=== PATIENT | female | born 1960 | race Caucasian/White ===

== ENCOUNTER 2021-10-25 07:21 | Day surgery (SDC) | payer OTHER, SELFPAY ==
[~2021-10-25] VITALS: Ht 175.3 cm; Wt 72.6 kg
[2021-10-25] MEDS ORDERED: PROPOFOL 200MG/ 20ML VIAL (DIPRIVAN) IV ONE (09:21)
[2021-10-25] MEDS ORDERED: ONDANSETRON HCL 4 MG/2 ML VIAL IVP ONE (09:21)
[2021-10-25] MEDS ORDERED: DEXAMETHASONE SOD PHOSPHATE 4 MG/ML VIAL IVP ONE (09:21)
[2021-10-25] MEDS ORDERED: DESFLURANE 15 MIN GAS INH ONE (09:21)
[2021-10-25] MEDS ORDERED: KETOROLAC TROMETHAMINE 30 MG VIAL IVP ONE (09:21)
[2021-10-25] MEDS ORDERED: LR 1,000 ML IV.SOLN IV ONE (09:21)
[2021-10-25] MEDS ORDERED: NS IRRIG SOLN 1000 ML IR ONE (09:21)
[2021-10-25] MEDS ORDERED: fentaNYL CITRATE/PF 100 MCG/2 ML AMP IVP ONE (09:21)
[2021-10-25] MEDS ORDERED: NS 1000 ML IV.SOLN IV ONE (09:21)
[2021-10-25] MEDS ORDERED: ACETAMINOPHEN I.V. 1000 MG 100 ML IV ONE (10:09)
[2021-10-25] MEDS ORDERED: ONDANSETRON HCL 4 MG/2 ML VIAL IVP PRN ×2 (10:15)
[2021-10-25] MEDS ORDERED: HYDROmorphone 1 MG/ML INJ. CARTRIDGE IVP PRN ×2 (10:15)
[2021-10-25] MEDS ORDERED: HYDROcodone/ACETAMIN 5-325 MG TAB (NORCO/ VICODIN) PO PRN (10:15)
[2021-10-25] MEDS ORDERED: OXYCODONE/ACETAMINOPHEN 5-325 TABLET PO PRN ×2 (10:15)
[2021-10-25] MEDS ORDERED: ONDANSETRON HCL 4 MG/2 ML VIAL ONE (10:26)
[2021-10-25] MEDS: HYDROmorphone 1 MG/ML INJ. CARTRIDGE ONE ×2 (10:35→10:50)
[2021-10-25 14:33] VITALS: BP_SYST 104
== END 2021-10-25 13:50 | disposition home or self-care (01) ==
LOC: SDS 07:21 → SMU 07:22 → SDS 13:50
PROVIDERS: ATTEND Specialist
DX: N95.0 Postmenopausal bleeding (principal); N84.0 Polyp of corpus uteri; Z79.899 Other long term (current) drug therapy; Z20.822 Contact with and (suspected) exposure to COVID-19
CPT/HCPCS: 58558; 88305; J0131; J1100; J1170; J1885; J2405; J2704; J3010; J7030; J7120; U0003